=== PATIENT | male | born 1995 ===

== ENCOUNTER 2022-08-26 19:12 | Emergency (ER) | payer OTHER, SELFPAY ==
--- NOTE | 2022-08-26 19:32 | DI.CT.S_ITS ---
PROCEDURE: CT HEAD/BRAIN WO CON INDICATIONS: delusions, altered TECHNIQUE: Noncontrast 4.5 mm thick angled axial sections acquired from the foramen magnum to the vertex, with coronal and sagittal reformats. For radiation dose reduction, the following was used: automated exposure control, adjustment of mA and/or kV according to patient size. COMPARISON: None. FINDINGS: CSF spaces: Basal cisterns are patent. No extra-axial fluid collections. Ventricles are normal in size and shape. Brain: No midline shift. No intracranial masses or hemorrhage. Duarte-white matter interface is normal. Skull and face: Calvarium and visualized facial bones are intact, without suspicious lesions. Sinuses: Visualized sinuses and mastoids are clear. IMPRESSION: No intracranial hemorrhage or other acute intracranial abnormality. Dictated by: Rambo Mayfield M.D. on 08/26/2022 at 19:58 Approved by: Rambo Mayfield M.D. on 08/26/2022 at 20:07
[2022-08-26 19:34] VITALS: BP 186/108; PULSE 125; RESP 17; TEMP 37.2; O2SAT 98; BMI 26.6
--- NOTE | 2022-08-26 19:56 | PC.NURSE ---
Patient reports feeling depressed since and recently in the last week has been having delusional thoughts and is afraid he has psychosis. He states he called [facility] on friday, , Friday, and today and that he doesn't think they believed me. he states he has been having these states of calmness, where I feel the presence of a higher power and like I am ascending. States at times I believe it and then at other times I realize it's delusional. Also reports, fits of rage however has not been outwardly violent. Reports passive and vague suicidal thoughts like there's no other way out of this but no plan. Recent life stressors include being rejected by a girl. Is voluntarily seeking help. [facility] and been prescribed and taking zoloft for the last 3 days. States he has insomnia and only sleeps 3 hours per night.
[2022-08-26 20:06] LABS: Add Manual Diff / Slide Review NO; Basophils Absolute Auto 0 /uL (0-100); Basophils Percent Auto 0.3 % (0-2); Eosinophils Absolute Auto 100 /uL (0-450); Eosinophils Percent Auto 1.2 % (2-4); Hematocrit 44.4 % (41-53); Hemoglobin 15.1 g/dL (13.5-17.5); Lymphocytes Absolute Auto 1200 /uL (1100-4500); Lymphocytes Percent Auto 15.3 % (25-40); Mean Corpuscular Volume 85.1 fL (80-100); Monocytes Absolute Auto 700 /uL (0-900); Neutrophils Absolute Auto 6000 /uL (1500-7000); Neutrophils Percent Auto 74.2 % (50-75); Platelet Count 195 X10^3/uL (150-400); Red Blood Cell Count 5.22 X10^6/uL (4.5-5.9); Red Cell Distribution Width 13.5 % (11.6-14.8); White Blood Cell Count 8.1 X10^3/uL (4.5-11.0)
[2022-08-26 20:19] LABS: Acetaminophen < 10 ug/mL (10-30); Ethanol (ETOH) < 10 mg/dL; Salicylate < 1.0 mg/dL (<20)
[2022-08-26 20:22] LABS: Alanine Aminotransferase 81 IU/L (<50); Albumin 4.3 g/dL (3.5-5.0); Albumin Globulin Ratio 1.3 (1.0-2.8); Alkaline Phosphatase 55 U/L (38-126); Aspartate Aminotransferase 214 IU/L (17-59); BUN Creatinine Ratio 11.9 (6-22); Bilirubin Total 0.5 mg/dL (0.2-1.3); Blood Urea Nitrogen 13 mg/dL (9-20); Calcium 8.9 mg/dL (8.4-10.2); Carbon Dioxide 26 mmol/L (22-32); Chloride 102 mmol/L (98-107); Estimated Glomerular Filt Rate > 60 mL/min (>60); Globulin 3.2 g/dL (1.7-4.1); Glucose 126 mg/dL (70-100); HEMOLYSIS < 15 (0-50); Potassium 3.8 mmol/L (3.4-5.1); Sodium 137 mmol/L (137-145); Total Protein 7.5 g/dL (6.3-8.2)
[2022-08-26 20:37] LABS: Free T4, Direct Thyroxine 1.29 ng/dL (0.78-2.19)
[2022-08-26 20:50] LABS: Thyroid Stimulating Hormone 0.214 uIU/mL (0.47-4.68)
--- NOTE | 2022-08-26 21:04 | ED.GENADULT ---
HPI - General Adult General Chief complaint: Psychiatric Symptoms Stated complaint: mental health crisis Time Seen by Provider: 08/26/22 19:28 Source: patient Mode of arrival: Ambulatory History of Present Illness HPI narrative: 27-year-old male, uses Vape, without known medical history presents due to increasing depression and anxiety and feeling delusional for the past month or so. He states that he has had some suicidal thoughts but no specific plan. He denies any longstanding history of mental health issues and states that the trigger seems to be a rejection from a romantic interest relatively recently. He denies any trauma or injury. He denies strong mental health and his family. He states that he is made multiple attempts over the [place]. He states that he has episodes where he feels overwhelming senses of depression and thoughts that there is no alternative other than ending his life, but as stated has no specific plan. He is had no headaches or blurred vision. Denies chest pain or shortness of breath. He denies nausea, vomiting or diarrhea. Review of Systems Review of Systems Narrative: GENERAL: Denies chills, fatigue, malaise, fever, sweats. HEENT: Denies sinus pain, ear pain, sore throat, difficulty swallowing, dizziness. RESPIRATORY: Denies dyspnea, cough, wheezing, hemoptysis, sputum. CARDIOVASCULAR: Denies chest pain, palpitations, orthopnea, edema, GASTROINTESTINAL: Denies nausea, vomiting, abdominal pain, diarrhea, constipation, melena. : Denies dysuria, frequency, incontinence, hematuria, urinary retention. MUSCULOSKELETAL: denies weakness, joint pain, or bony pain SKIN: Denies rash, skin lesions, or other NEUROLOGIC: Denies weakness, headache, numbness, change in speech, confusion, seizures, incoordination. PSYCHIATRIC: See HPI 12 point review of systems is negative except for those stated above Patient History tobacco type: vaping alcohol intake frequency: a few times a month Substance Use Type: does not use Exam Narrative Exam Narrative: GENERAL: [27] year old patient appears stated age. Well-developed patient, in mild distress. Appears anxious, GCS 15 HEAD: Atraumatic. Normocephalic. EYES: Pupils equal round and reactive. Extraocular motions intact. No scleral icterus. No injection or drainage. ENT: Nose without bleeding, purulent drainage. Throat without erythema, tonsillar hypertrophy or exudate. Airway patent. NECK: Trachea midline. Non tender CARDIOVASCULAR: Regular rate and rhythm without murmurs, gallops, or rubs. RESPIRATORY: Clear to auscultation. Breath sounds equal bilaterally. No wheezes, rales, or rhonchi. GASTROINTESTINAL: Abdomen soft, non-tender, nondistended. EXTREMITIES: No edema or joint tenderness. BACK: Nontender without deformity or crepitance. No flank tenderness. NEURO: AOx3. SKIN: No rash or erythema of visible areas Initial Vital Signs Initial Vital Signs: Vital Signs Temperature 98.9 F 08/26/22 19:34 Pulse Rate 125 H 08/26/22 19:34 Respiratory Rate 17 08/26/22 19:34 Blood Pressure 186/108 H 08/26/22 19:34 Pulse Oximetry 98 08/26/22 19:34 Oxygen Delivery Method Room Air 08/26/22 19:34 Course Course Course Narrative: Patient seen and evaluated early by social work, she has reached out to [facility] for preliminary information and confirms they do have a bed Orders Ordered: ED Orders 08/26/22 19:32 CT head/brain wo con Stat EKG-12 Lead Stat 08/26/22 19:33 Consult to [employer]ELOPER - Public Health Technologist Stat 08/26/22 19:45 Acetaminophen Stat Complete Blood Count AUTO DIFF Stat Comprehensive Metabolic Panel Stat Ethanol (ETOH) Stat Free T4, Direct Thyroxine Stat Salicylate Stat Thyroid Stimulating Hormone Stat 08/26/22 23:25 Urine Drug Screen, Rapid Stat 08/27/22 00:00 COVID19 -Nasal RAPID Stat Reevaluation(s) Reevaluation #1: Patient has been medically cleared and in my opinion appropriate for hospitalization to further evaluate and treat his depression and suicidal thoughts Vital Signs Vital signs: Vital Signs - 8 hr 08/26/22 19:34 08/26/22 21:17 08/26/22 21:18 Temperature 98.9 F Pulse Rate 125 H 81 85 Respiratory Rate 17 Blood Pressure 186/108 H Pulse Oximetry 98 99 99 Oxygen Delivery Method Room Air 08/26/22 21:18 08/26/22 21:19 08/26/22 21:19 Temperature 98.8 F Pulse Rate 86 86 Respiratory Rate 16 Blood Pressure 158/107 H 149/97 H Pulse Oximetry 98 98 Oxygen Delivery Method Medical Decision Making Lab Data 08/26/22 19:45 05/15/23 19:45 Labs: Lab Results 08/26/22 08/26/22 08/26/22 Range/Units 19:45 19:45 19:45 WBC 8.1 (4.5-11.0) X10^3/uL RBC 5.22 (4.5-5.9) X10^6/uL Hgb 15.1 (13.5-17.5) g/dL Hct 44.4 (41-53) % MCV 85.1 (80-100) fL MCH 29.0 (26-34) PG MCHC 34.0 (30-36) % RDW 13.5 (11.6-14.8) % Plt Count 195 (150-400) X10^3/uL Neut % (Auto) 74.2 (50-75) % Lymph % (Auto) 15.3 L (25-40) % [place] % (Auto) 9.0 (3-14) % Eos % (Auto) 1.2 L (2-4) % Baso % (Auto) 0.3 (0-2) % Neut # (Auto) 6000 (3311-8552) /uL Lymph # (Auto) 1200 (5591-5297) /uL [place] # (Auto) 700 (0-900) /uL Eos # (Auto) 100 (0-450) /uL Baso # (Auto) 0 (0-100) /uL Sodium 137 (137-145) mmol/L Potassium 3.8 (3.4-5.1) mmol/L Chloride 102 (98-107) mmol/L Carbon Dioxide 26 (22-32) mmol/L BUN 13 (9-20) mg/dL Creatinine 1.09 (0.66-1.25) mg/dL Estimated GFR > 60 (>60) mL/min BUN/Creatinine Ratio 11.9 (6-22) Glucose 126 H (70-100) mg/dL Calcium 8.9 (8.4-10.2) mg/dL Total Bilirubin 0.5 (0.2-1.3) mg/dL AST 214 H (17-59) IU/L ALT 81 H (<50) IU/L Alkaline Phosphatase 55 (38-126) U/L Total Protein 7.5 (6.3-8.2) g/dL Albumin 4.3 (3.5-5.0) g/dL Globulin 3.2 (1.7-4.1) g/dL Albumin/Globulin Ratio 1.3 (1.0-2.8) TSH 0.214 L (0.47-4.68) uIU/mL Free T4 1.29 (0.78-2.19) ng/dL Salicylates (<20) mg/dL U Opiates 300ng/mL cut (Negative) Ur Oxycodone Screen (Negative) Urine Methadone Screen (Negative) Acetaminophen (10-30) ug/mL Ur Barbiturates Screen (Negative) U Tricyclic Antidepress (Negative) Ur Phencyclidine Scrn (Negative) Ur Amphetamines Screen (Negative) U Methamphetamines Scrn (Negative) Ur MDMA Scrn (Ecstasy) (Negative) U Benzodiazepines Scrn (Negative) Urine Cocaine Screen (Negative) U Marijuana (THC) Screen (Negative) Ethyl Alcohol ( - 10) mg/dL SARS-CoV-2 (PCR) (Negative) 08/26/22 08/26/22 08/27/22 Range/Units 19:45 23:25 00:00 WBC (4.5-11.0) X10^3/uL RBC (4.5-5.9) X10^6/uL Hgb (13.5-17.5) g/dL Hct (41-53) % MCV (80-100) fL MCH (26-34) PG MCHC (30-36) % RDW (11.6-14.8) % Plt Count (150-400) X10^3/uL Neut % (Auto) (50-75) % Lymph % (Auto) (25-40) % [place] % (Auto) (3-14) % Eos % (Auto) (2-4) % Baso % (Auto) (0-2) % Neut # (Auto) (3360-8033) /uL Lymph # (Auto) (5090-4042) /uL [place] # (Auto) (0-900) /uL Eos # (Auto) (0-450) /uL Baso # (Auto) (0-100) /uL Sodium (137-145) mmol/L Potassium (3.4-5.1) mmol/L Chloride (98-107) mmol/L Carbon Dioxide (22-32) mmol/L BUN (9-20) mg/dL Creatinine (0.66-1.25) mg/dL Estimated GFR (>60) mL/min BUN/Creatinine Ratio (6-22) Glucose (70-100) mg/dL Calcium (8.4-10.2) mg/dL Total Bilirubin (0.2-1.3) mg/dL AST (17-59) IU/L ALT (<50) IU/L Alkaline Phosphatase (38-126) U/L Total Protein (6.3-8.2) g/dL Albumin (3.5-5.0) g/dL Globulin (1.7-4.1) g/dL Albumin/Globulin Ratio (1.0-2.8) TSH (0.47-4.68) uIU/mL Free T4 (0.78-2.19) ng/dL Salicylates < 1.0 (<20) mg/dL U Opiates 300ng/mL cut Negative (Negative) Ur Oxycodone Screen Negative (Negative) Urine Methadone Screen Negative (Negative) Acetaminophen < 10 (10-30) ug/mL Ur Barbiturates Screen Negative (Negative) U Tricyclic Antidepress Negative (Negative) Ur Phencyclidine Scrn Negative (Negative) Ur Amphetamines Screen Negative (Negative) U Methamphetamines Scrn Negative (Negative) Ur MDMA Scrn (Ecstasy) Negative (Negative) U Benzodiazepines Scrn Negative (Negative) Urine Cocaine Screen Negative (Negative) U Marijuana (THC) Screen Negative (Negative) Ethyl Alcohol < 10 ( - 10) mg/dL SARS-CoV-2 (PCR) Negative (Negative) Urine Dip Bedside Urine Glucose Negative Bedside Urine Bilirubin - Negative Bedside Urine Ketone - Negative Urine Specific [place] 1.015 Bedside Urine Occult Blood - Negative Bedside Urine pH 7.0 Bedside Urine Protein - Negative Bedside Urine Urobilinogen - Negative Bedside Urine Nitrite - Negative Bedside Urine Leukocytes - Negative Esterase Point of care testing: Urine Dip Bedside Urine Glucose Negative Bedside Urine Bilirubin - Negative Bedside Urine Ketone - Negative Urine Specific [place] 1.015 Bedside Urine Occult Blood - Negative Bedside Urine pH 7.0 Bedside Urine Protein - Negative Bedside Urine Urobilinogen - Negative Bedside Urine Nitrite - Negative Bedside Urine Leukocytes - Negative Esterase MDM Narrative Medical decision making narrative: [27] year old patient presents with depression and SI No prior charts available Primary Historian: patient Labs reviewed and interpreted by myself: No significant abnormalities requiring specific intervention, we were able to medically clear him Imaging reviewed: Head CT without acute intracranial abnormality Consultations:Dr. Keyes (Psych at [facility]) happy to ccept Patient with worsening depression and suicidal ideation presents under voluntary circumstances. He is certainly appropriate for hospitalization has been medically cleared. Thankfully [facility] was able to help and has an available bed Discharge Plan Departure Patient Disposition: Xfer Psychiatric Hosp Clinical Impression: Depression with suicidal ideation Referrals: Miscellaneous,DoctorMD [Primary Care Provider] -
[2022-08-26 21:17] VITALS: PULSE 81; O2SAT 99
[2022-08-26 21:18] VITALS: BP 158/107; PULSE 85; O2SAT 99
[2022-08-26 21:19] VITALS: BP 149/97; PULSE 86; RESP 16; TEMP 37.1; O2SAT 98
[2022-08-26 23:55] LABS: UR Morphine/Opiate cutoff 300 Negative (Negative); Ur Creatinine Normal (Normal); Ur Specific Gravity Normal (Normal); Urine Amphetamines Negative (Negative); Urine Barbiturates Negative (Negative); Urine Benzodiazepines Negative (Negative); Urine Cocaine Negative (Negative); Urine MDMA Negative (Negative); Urine Methadone Negative (Negative); Urine Methamphetamines Negative (Negative); Urine Oxycodone Negative (Negative); Urine Phencyclidine Negative (Negative); Urine Tetrahydrocannabinol Negative (Negative); Urine Tricyclic Antidepressant Negative (Negative); Urine pH Normal (Normal)
[2022-08-27 00:46] LABS: COVID19 -Nasal RAPID Negative (Negative)
[2022-08-27 04:52] VITALS: BP 157/98; PULSE 70; RESP 18; O2SAT 98
[2022-08-27 04:57] VITALS: BP 157/98; PULSE 74; RESP 18; TEMP 36.4; O2SAT 98
== END 2022-08-27 05:00 ==
PROVIDERS: Emergency Provider Emergency Medicine
DX: R45.851 Suicidal ideations (principal); F32.A Depression, unspecified; F22 Delusional disorders; Z20.822 Contact with and (suspected) exposure to COVID-19
CPT/HCPCS: 36415; 70450; 80053; 80305; 80320; 80329; 81003; 84439; 84443; 85025; 87635; 93005; 99283; C9803; G0480